=== PATIENT | female | born 1995 | race African-American/Black ===

== ENCOUNTER 2016-06-08 16:45 | Emergency (ER) | payer OTHER ==
--- NOTE | ~2016-06-08 | US61 ---
[facility] A Service of [facility] & [facility] [place] RADIOLOGY TEXT RESULTS PATIENT: SWEETIE BANG LOCATION: [facility] : [birth year] UNIT #: [id number] AGE: [address]: Bia España SEX: F ORDER DR: [id number] [facility] [address] [place], [place] [address] [id number] E MR#: [id number] Acc #: [id number] NAME: SWEETIE BANG : 1995 SEX: F STUDY DATE/TIME: 06/08/2016 17:04 UNIT: CFUT ROOM: STUDY DESCRIPTION: US /Mat <[id number] Attending Physician: Bia España P.A.-C. Ordering Physician: Bia España P.A.-C. Primary Care Physician: Chris Gage M.D. MEDICAL IMAGING REPORT This report is preliminary unless electronic signature is present EXAM Transvaginal ultrasound of the pelvis INDICATION Pelvic pain. G1, P0, A0. Last menstrual period 04/23/2016. Quantitative HCG is unavailable at this time. Estimated gestational age of 6 weeks 4 days. COMPARISON None available. FINDINGS The uterus measures 7.2 x 4.5 x 4.0 cm. There is a single intrauterine gestational sac at the fundus. The estimated gestational age is 5 weeks, 4 days. It is noted that this date is likely inaccurate as only a single measurement was used for the mean sac diameter. The right ovary measures 2.7 x 2.9 x 3.9 cm. There is a presumed corpus luteal cyst within the central right ovary measuring up to 1.5 cm. The left ovary is normal measuring 1.7 x 1.4 x 2.9 cm. No adnexal mass or free pelvic fluid. IMPRESSION 1. A single intrauterine gestational sac with an estimated gestational age of 5 weeks, 4 days. The gestational sac is too small to identify a heart rate at this time. Dictated by... Adi Pabon M.D. THIS IS AN ELECTRONICALLY VERIFIED REPORT [facility] A Service of [facility] & [facility] [place] RADIOLOGY TEXT RESULTS PATIENT: SWEETIE BANG LOCATION: [facility] : [birth year] UNIT #: [id number] AGE: [address]: Bia España SEX: F ORDER DR: Adi Pabon M.D. at 06/09/2016 10:28 AM PATRICK/candi TD: 06/09/2016 08:44 JOB #: [id number] MEDICAL IMAGING REPORT COPY
[2016-06-08 16:55] LABS: URINE SOURCE CLEAN CATCH
[2016-06-08 17:08] LABS: URINE APPEARANCE CLOUDY; URINE BILIRUBIN NEG (NEG); URINE BLOOD NEG (NEG); URINE COLOR YELLOW; URINE GLUCOSE NEG (NEG); URINE KETONE NEG (NEG); URINE LEUKOCYTE ESTERASE TRACE (NEG); URINE NITRATE NEG (NEG); URINE PROTEIN TRACE (NEG); URINE SPECIFIC GRAVITY 1.026 (1.003-1.035)
[2016-06-08 17:09] LABS: URINE PH 9.5 (5-8)
[2016-06-08 17:11] LABS: CULTURE INDICATED? YES; URBCS1 AUWI 0-2 /[HPF] (0-2); URINE BACTERIA AUWI 2+ (NEGATIVE); URINE SQUAMOUS EPITHELIAL CELL MOD /[HPF]
[2016-06-11 13:00] LABS: CHLAMYDIA TRACH Not Detected (Not Detected); N GONOR Not Detected (Not Detected)
== END 2016-06-08 18:00 | disposition home or self-care (01) ==
LOC: CFTX 16:45
PROVIDERS: Physician Assistant
DX: O98.311 Other infections with a predominantly sexual mode of transmission complicating pregnancy, first trimester (principal); A59.03 Trichomonal cystitis and urethritis; O99.331 Smoking (tobacco) complicating pregnancy, first trimester; F17.210 Nicotine dependence, cigarettes, uncomplicated; Z3A.01 Less than 8 weeks gestation of pregnancy
CPT/HCPCS: 76801; 81003; 84702; 84703; 87086; 87088; 87186; 87491; 87591; 87808; 87905; 96372; 99284; J0696